=== PATIENT | male | born 1970 | race Caucasian/White ===

== ENCOUNTER 2020-11-21 06:24 | Outpatient (REF) | payer OTHER, SELFPAY ==
[2020-11-21 07:27] LABS: Estimated Average Glucose 123 mg/dL; Hemoglobin A1c % 5.9 %
[2020-11-21 07:45] LABS: Alanine Aminotransferase 58 U/L (0-40); Albumin Level 4.6 g/dL (3.5-5.0); Alkaline Phosphatase 89 U/L (39-117); Anion Gap 13 (12-20); Aspartate Amino Transferase 25 U/L (5-37); Bilirubin Total 0.8 mg/dL (0.0-1.0); Blood Urea Nitrogen 13 mg/dL (9-16); Calcium 9.2 mg/dL (8.4-10.2); Carbon Dioxide 27 mmol/L (22-29); Chloride 104 mmol/L (96-108); Cholesterol 162 mg/dL; Estimated Glomerular Filt Rate > 60; Glucose Random 131 mg/dL (60-115); HDL Cholesterol 33 mg/dL; LDL Cholesterol Calculated 80 mg/dl; Potassium 4.7 mmol/L (3.3-5.1); Sodium 139 mmol/L (135-145); Total Protein 7.2 g/dL (6.5-8.0); Triglycerides 246 mg/dL
[2020-11-21 07:56] LABS: Thyroid Stimulating Hormone 1.58 uIU/mL (0.32-4.0)
== END 2020-11-21 06:25 | disposition home or self-care (01) ==
LOC: HO.LAB 06:24
PROVIDERS: PCP Internal Medicine; Visit Provider Internal Medicine
DX: E78.2 Mixed hyperlipidemia (principal); I10 Essential (primary) hypertension; M25.512 Pain in left shoulder; R73.01 Impaired fasting glucose; R74.01 Elevation of levels of liver transaminase levels
CPT/HCPCS: 36415; 80053; 80061; 83036; 84443

== ENCOUNTER 2021-04-12 07:27 | Outpatient (REF) | payer OTHER, SELFPAY ==
[2021-04-12 07:54] LABS: MANUAL DIFF FLAG NO
[2021-04-12 07:57] LABS: Basophils Absolute Auto 0.1 X10*3/uL (0.0-0.2); Basophils Percent Auto 0.9 % (0-2); Eosinophils Absolute Auto 0.3 X10*3/uL (0.0-0.4); Hematocrit 40.8 % (42-52); Hemoglobin 14.2 g/dl (14.0-18.0); Imm Gran Abs Auto 0.03 X10*3/uL (0.00-0.03); Imm Gran Pct Auto 0.3 % (0.0-0.4); Lymphocytes Absolute Auto 3.5 X10*3/uL (1.2-4.9); Lymphocytes Percent Auto 36.7 % (20-40); Mean Corpuscular HGB Conc 34.8 g/dl (31.0-36.0); Mean Corpuscular Hemoglobin 31.9 pg (27.0-33.0); Mean Corpuscular Volume 91.7 fL (80-98); Mean Platelet Volume 8.8 fL (9.4-12.4); Monocytes Absolute Auto 0.8 X10*3/uL (0.1-1.2); Monocytes Percent Auto 8.5 % (2-11); Neutrophils Absolute Auto 4.9 X10*3/uL (2.0-8.3); Neutrophils Percent Auto 50.6 % (45-73); Platelet Count 327 X10*3/uL (160-400); Red Blood Count 4.45 X10*6/uL (4.60-5.80); Red Cell Distribution Width 12.5 % (11.0-16.0); White Blood Count 9.6 X10*3/uL (4.8-10.8)
[2021-04-12 08:15] LABS: Alanine Aminotransferase 49 U/L (0-40); Albumin Level 4.7 g/dL (3.5-5.0); Alkaline Phosphatase 76 U/L (39-117); Anion Gap 13 (12-20); Aspartate Amino Transferase 16 U/L (5-37); Bilirubin Total 0.7 mg/dL (0.0-1.0); Blood Urea Nitrogen 16 mg/dL (9-16); Carbon Dioxide 26 mmol/L (22-29); Chloride 106 mmol/L (96-108); Cholesterol 165 mg/dL; Estimated Glomerular Filt Rate > 60; Glucose Random 113 mg/dL (60-115); HDL Cholesterol 39 mg/dL; LDL Cholesterol Calculated 98 mg/dl; Potassium 4.9 mmol/L (3.3-5.1); Sodium 140 mmol/L (135-145); Triglycerides 140 mg/dL
[2021-04-12 08:29] LABS: Estimated Average Glucose 117 mg/dL; Hemoglobin A1c % 5.7 %
== END 2021-04-12 07:28 | disposition home or self-care (01) ==
LOC: HO.LAB 07:27
PROVIDERS: PCP Internal Medicine; Visit Provider Internal Medicine
DX: E78.2 Mixed hyperlipidemia (principal); I10 Essential (primary) hypertension; R73.01 Impaired fasting glucose
CPT/HCPCS: 36415; 80053; 80061; 83036; 85025

== ENCOUNTER 2021-09-21 06:30 | Day surgery (SDC) | payer OTHER, SELFPAY ==
[2021-09-14 11:39] VITALS: BMI 32.5
--- NOTE | 2021-09-20 10:38 | P.CONAN_ITS ---
Documented by User: Amy Miller NP 09/20/21 10:39 HPI - Anesthesia Eval Consult details Narrative: 50yo M for Colonoscopy [facility] Past Medical History Medical History (Updated 09/21/21 @ 06:49 by Alyssa Pisano RN) Borderline diabetes COVID-19 vaccine administered HTN (hypertension) Hyperlipidemia On beta kelsie at home Snores Surgical History Surgical History (Updated 09/21/21 @ 06:41 by Alyssa Pisano RN) History of arthroscopy of right knee History of shoulder surgery Hx of vasectomy Social History Social History Patient Tobacco Use Status: Former Tobacco user Quit Date: 20 yrs ago Use of substances other than those prescribed or required for medical reasons: No Are you DNR?: No Advance Directives: No Advance Directives Information Provided: Yes Meds Allergies Allergy/AdvReac Type Severity Reaction Status Date / Time codeine [Codeine] Allergy Mild SEVERE Verified 09/21/21 06:38 STOMACH PAIN atorvastatin Allergy Unknown Unknown Verified 09/21/21 06:38 lisinopril [LISINOPRIL] Allergy Unknown ANGIOEDEMA Verified 09/21/21 06:38 Home Medications Medication Instructions Recorded Confirmed Last Taken Type amlodipine 10 mg tablet 10 mg PO DAILY 09/14/21 09/14/21 Unknown History coenzyme Q10 100 mg capsule (Co 100 mg PO DAILY 09/14/21 09/14/21 Unknown History Q-10) metoprolol succinate 50 mg 50 mg PO DAILY 09/14/21 09/14/21 Unknown History tablet,extended release 24 hr rosuvastatin 10 mg tablet 10 mg PO DAILY 09/14/21 09/14/21 Unknown History Exam Exam Date and Time: September 20, 2021 1038 Height,Weight and Vital Signs: Height 6 ft Weight 108.862 kg Pertinent Lab Results Pertinent Lab Results: Laboratory Tests 04/12/21 04/12/21 07:35 07:35 WBC 9.6 Hgb 14.2 Hct 40.8 L Plt Count 327 Sodium 140 Potassium 4.9 Chloride 106 Carbon Dioxide 26 BUN 16 Creatinine 1.14 Assessment and Plan Assessment Anesthesia Assessment: Chart Reviewed Documented by User: Melva Rosenthal MD 09/21/21 09:06 [facility] Active Problems Active Problems: Snores. No sleep study Past Medical History Medical History (Updated 09/21/21 @ 06:49 by Alyssa Pisano, CHANCE) Borderline diabetes COVID-19 vaccine administered HTN (hypertension) Hyperlipidemia On beta kelsie at home Snores Family History Family history of problems with anesthesia: No Surgical History Surgical History (Updated 09/21/21 @ 06:41 by Alyssa Pisano, CHANCE) History of arthroscopy of right knee History of shoulder surgery Hx of vasectomy History of Problems with Anesthesia: No Social History Social History Patient Tobacco Use Status: Former Tobacco user Quit Date: 20 yrs ago Use of substances other than those prescribed or required for medical reasons: No Are you DNR?: No Advance Directives: No Advance Directives Information Provided: Yes Meds Allergies Allergy/AdvReac Type Severity Reaction Status Date / Time codeine [Codeine] Allergy Mild SEVERE Verified 09/21/21 06:38 STOMACH PAIN atorvastatin Allergy Unknown Unknown Verified 09/21/21 06:38 lisinopril [LISINOPRIL] Allergy Unknown ANGIOEDEMA Verified 09/21/21 06:38 Home Medications Medication Instructions Recorded Confirmed Last Taken Type amlodipine 10 mg tablet 10 mg PO DAILY 09/14/21 09/14/21 Unknown History coenzyme Q10 100 mg capsule (Co 100 mg PO DAILY 09/14/21 09/14/21 Unknown History Q-10) metoprolol succinate 50 mg 50 mg PO DAILY 09/14/21 09/14/21 Unknown History tablet,extended release 24 hr rosuvastatin 10 mg tablet 10 mg PO DAILY 09/14/21 09/14/21 Unknown History Exam Height,Weight and Vital Signs: Height 6 ft Weight 108.862 kg Vital Signs Temp Pulse Resp BP Pulse Ox 09/21/21 06:46 97.3 F 69 16 135/83 96 Airway Mallampati Class: II TM Dist: >3cm Neck ROM: Full Loose/Missing/Broken Teeth: Yes (Missing top right) Heart: RRR Lungs: CTAB Assessment and Plan Final Anesthetic Review Family History of Problems with Anesthesia: No History of Problems with Anesthesia: No NPO: Yes ASA Class: II Final Preanesthetic Review: No Changes in Pt Med Stat, Meds/Allgs Chart Revie wed, Consent Obtained/Reviewed and Anes Risks/Benef Reviewed Patient Risk: Intermediate Procedure Risk: Low Assessment/Block/Sedation in SS: Assess/Block/Sedation-SS Anesthetic Plan Anesthetic Plan: MAC: Disposition: Standard PACU
[2021-09-21 06:46] VITALS: BP 135/83; PULSE 69; RESP 16; TEMP 36.3; O2SAT 96
[2021-09-21] MEDS: Lactated Ringers 1,000 ML 100 ML IVCONT (06:54)
--- NOTE | 2021-09-21 08:48 | P.BOP_ITS ---
Brief Operative Note Date of Service: 09/21/21 Pre-op diagnosis: Screening Post-op diagnosis: other (Colon polyps) Procedure: Colonosdcopy to the cecum and TI with bx/removal of polyp, and multiple hot snare polypectomies Surgeon: Edmond Zhong Anesthesia: MAC Was an Lean Six Sigma Black Belt used for this Procedure?: No Estimated blood loss (mL): 2.0 Pathology: other (A. Transverse colon polyps B. Polyps at 40cm C. Polyp at 30cm D. Rectal polyp) Condition: stable Disposition: PACU
[2021-09-21 08:49] VITALS: BP 108/65; PULSE 79; RESP 14; TEMP 36.3; O2SAT 98
[2021-09-21 09:04] VITALS: BP 120/67; PULSE 75; RESP 16; TEMP 36.3; O2SAT 99
--- NOTE | 2021-09-21 09:22 | OP_ITS ---
SURGEON: Edmond Zhong MD INDICATIONS: The patient presents for evaluation of colorectal cancer screening. Full consent has been obtained from him for this, including risks of bleeding and perforation. PREOPERATIVE DIAGNOSIS: Colorectal cancer screening. POSTOPERATIVE DIAGNOSIS: PROCEDURE PERFORMED: Colonoscopy to the cecum and terminal ileum with multiple hot snare polypectomies, and biopsy and removal of polyp. ESTIMATED BLOOD LOSS: COMPLICATIONS: ANESTHESIA: Monitored anesthesia care. ASSISTANTS: SPECIMENS: POSTOPERATIVE DIAGNOSES: Colorectal cancer screening, multiple colon polyps, diverticulosis, and internal hemorrhoids. DESCRIPTION OF PROCEDURE: The patient was placed in the left lateral decubitus position. The digital rectal exam revealed no abnormalities. The Olympus video pediatric colonoscope was entered into the rectum and advanced easily to the cecum. Once in the cecum, I did identify normal-appearing cecal pouch with appendiceal orifice and a normal-appearing ileocecal valve. The terminal ileum was cannulated and appeared normal. The scope was withdrawn back from the colon. The entire cecum and ileocecal valve appeared normal. The scope was slowly withdrawn assessing all mucosal surfaces carefully. Preparation was excellent. In the transverse colon was an approximately 3 or 4 mm grossly adenomatous polyp, which was biopsied and completely removed with the cold biopsy forceps. Also, in the transverse colon and at 40 cm were multiple grossly adenomatous polyps ranging in size from 5 mm to 1.5 cm. These were all removed by hot snare polypectomy and either recovered by suction or the retrieval net. All the polypectomy sites appeared clean, without any sign of residual polyp nor bleeding. At 30 cm was an approximately 1.5 cm polyp on a short stalk which was removed by hot snare polypectomy and recovered with the retrieval net. The polypectomy site appeared clean, without any sign of residual polyp nor bleeding. Of note, when the retrieval net was used, the polyps were withdrawn from the patient and then the scope was readvanced back to all of the polypectomy sites. There was a mild amount of sigmoid diverticulosis. There was no evidence of any colitis nor angiodysplasias. In the distal rectum, seen best in the forward viewing position, was an approximately 1 cm polyp, which was removed by hot snare polypectomy and recovered by withdrawing it on the tip of the scope. The scope was readvanced back into the rectum and the polypectomy site appeared clean, without any sign of residual polyp nor bleeding. The scope was retroflexed visualizing some small internal hemorrhoids, but no other pathology. The scope was straightened and withdrawn from the patient. He tolerated the procedure well and was returned to the recovery area in stable condition. IMPRESSION: 1. Multiple colon polyps, status post hot snare polypectomy, and biopsy and removal. 2. Diverticulosis. 3. Internal hemorrhoids. PLAN: The results of the pathology will be checked. Given the polyps' gross appearances, some of their sizes of > 1cm,, and their multiple number, I would recommend a repeat colonoscopy in 3 years for further screening and surveillance. He was advised not to use any aspirin or NSAIDs for 1 week. MD MARGIE Rodriguez/CHON / [id number] MTDSatinder
== END 2021-09-21 09:35 | disposition home or self-care (01) ==
PROVIDERS: PCP Internal Medicine; Visit Provider Internal Medicine
PROC: 0DJD8ZZ Inspection of Lower Intestinal Tract, Via Natural or Artificial Opening Endoscopic (ICD-10-PCS; CPT 45378; principal; 2021-09-21 07:30)
DX: Z12.11 Encounter for screening for malignant neoplasm of colon (principal); D12.3 Benign neoplasm of transverse colon; D12.5 Benign neoplasm of sigmoid colon; D12.8 Benign neoplasm of rectum; K57.30 Diverticulosis of large intestine without perforation or abscess without bleeding; K64.8 Other hemorrhoids; I10 Essential (primary) hypertension; E78.5 Hyperlipidemia, unspecified; R73.03 Prediabetes; R06.83 Snoring; Z79.899 Other long term (current) drug therapy; Z88.8 Allergy status to other drugs, medicaments and biological substances; Z87.891 Personal history of nicotine dependence
CPT/HCPCS: 45385; 45380; 88305; J2250

== ENCOUNTER 2022-04-26 06:04 | Outpatient (REF) | payer OTHER, SELFPAY ==
[2022-04-26 06:20] LABS: MANUAL DIFF FLAG NO
[2022-04-26 06:59] LABS: Basophils Absolute Auto 0.1 X10*3/uL (0.0-0.2); Basophils Percent Auto 1.7 % (0-2); Eosinophils Absolute Auto 0.4 X10*3/uL (0.0-0.4); Eosinophils Percent Auto 5.4 % (0-4); Hematocrit 42.9 % (42.0-52.0); Hemoglobin 14.9 g/dl (14.0-18.0); Imm Gran Abs Auto 0.02 X10*3/uL (0.00-0.03); Imm Gran Pct Auto 0.3 % (0.0-0.4); Lymphocytes Absolute Auto 2.3 X10*3/uL (1.2-4.9); Lymphocytes Percent Auto 29.3 % (20-40); Mean Corpuscular HGB Conc 34.7 g/dl (31.0-36.0); Mean Corpuscular Hemoglobin 32.2 pg (27.0-33.0); Mean Corpuscular Volume 92.7 fL (80.0-98.0); Mean Platelet Volume 8.9 fL (9.4-12.4); Monocytes Absolute Auto 0.9 X10*3/uL (0.1-1.2); Monocytes Percent Auto 11.5 % (2-11); Neutrophils Absolute Auto 4.1 x10*3/uL (2.0-8.3); Neutrophils Percent Auto 51.8 % (45-73); Platelet Count 286 X10*3/uL (160-400); Red Blood Count 4.63 X10*6/uL (4.60-5.80); Red Cell Distribution Width 11.9 % (11.0-16.0); White Blood Count 7.8 X10*3/uL (4.8-10.8)
[2022-04-26 07:42] LABS: Alanine Aminotransferase 51 U/L (0-40); Albumin Level 4.6 g/dL (3.5-5.0); Alkaline Phosphatase 75 U/L (39-117); Anion Gap 15 (12-20); Aspartate Amino Transferase 26 U/L (5-37); Bilirubin Total 0.6 mg/dL (0.0-1.0); Blood Urea Nitrogen 12 mg/dL (9-16); Calcium 9.6 mg/dL (8.4-10.2); Carbon Dioxide 27 mmol/L (22-29); Chloride 103 mmol/L (96-108); Cholesterol 158 mg/dL; Estimated Glomerular Filt Rate > 60; Glucose Random 121 mg/dL (60-115); HDL Cholesterol 31 mg/dL; LDL Cholesterol Calculated 91 mg/dl; Potassium 4.8 mmol/L (3.3-5.1); Sodium 140 mmol/L (135-145); Triglycerides 182 mg/dL
[2022-04-26 07:48] LABS: Thyroid Stimulating Hormone 2.13 uIU/mL (0.32-4.0)
== END 2022-04-26 06:05 | disposition home or self-care (01) ==
LOC: HO.LAB 06:04
PROVIDERS: PCP Internal Medicine; Visit Provider Internal Medicine
DX: G47.33 Obstructive sleep apnea (adult) (pediatric) (principal); I10 Essential (primary) hypertension; R74.01 Elevation of levels of liver transaminase levels
CPT/HCPCS: 36415; 80053; 80061; 84443; 85025

== ENCOUNTER 2022-10-25 08:44 | Outpatient (REF) | payer OTHER, SELFPAY ==
[2022-10-25 09:54] LABS: Estimated Average Glucose 123 mg/dL; Hemoglobin A1c % 5.9 %
[2022-10-25 10:24] LABS: Alanine Aminotransferase 43 U/L (0-40); Albumin Level 4.6 g/dL (3.5-5.0); Alkaline Phosphatase 75 U/L (39-117); Anion Gap 14 (12-20); Aspartate Amino Transferase 19 U/L (5-37); Bilirubin Total 0.9 mg/dL (0.0-1.0); Blood Urea Nitrogen 15 mg/dL (9-16); Calcium 9.3 mg/dL (8.4-10.2); Carbon Dioxide 26 mmol/L (22-29); Chloride 104 mmol/L (96-108); Estimated Glomerular Filt Rate > 60; Glucose Random 124 mg/dL (60-115); Potassium 5.2 mmol/L (3.3-5.1); Sodium 139 mmol/L (135-145)
[2022-10-25 10:41] LABS: Prostate Specific Antigen Scr 1.01 ng/mL (<0.05-4.0)
== END 2022-10-25 08:45 | disposition home or self-care (01) ==
LOC: HO.LAB 08:44
PROVIDERS: PCP Internal Medicine; Visit Provider Internal Medicine
DX: Z00.00 Encounter for general adult medical examination without abnormal findings (principal); Z12.5 Encounter for screening for malignant neoplasm of prostate; E78.00 Pure hypercholesterolemia, unspecified; I10 Essential (primary) hypertension; R73.01 Impaired fasting glucose; R74.01 Elevation of levels of liver transaminase levels; Z86.010 Personal history of colon polyps
CPT/HCPCS: 36415; 80053; 83036; 84153

== ENCOUNTER 2023-05-06 08:41 | Outpatient (REF) | payer OTHER, SELFPAY ==
[2023-05-06 09:04] LABS: MANUAL DIFF FLAG NO
[2023-05-06 09:53] LABS: Basophils Absolute Auto 0.1 X10*3/uL (0.0-0.2); Basophils Percent Auto 1.1 % (0-2); Eosinophils Absolute Auto 0.3 X10*3/uL (0.0-0.4); Eosinophils Percent Auto 3.3 % (0-4); Hematocrit 41.8 % (42.0-52.0); Hemoglobin 14.6 g/dl (14.0-18.0); Imm Gran Abs Auto 0.03 X10*3/uL (0.00-0.03); Imm Gran Pct Auto 0.3 % (0.0-0.4); Lymphocytes Absolute Auto 2.5 X10*3/uL (1.2-4.9); Lymphocytes Percent Auto 28.1 % (20-40); Mean Corpuscular HGB Conc 34.9 g/dl (31.0-36.0); Mean Corpuscular Hemoglobin 32.3 pg (27.0-33.0); Mean Corpuscular Volume 92.5 fL (80.0-98.0); Mean Platelet Volume 8.9 fL (9.4-12.4); Monocytes Absolute Auto 0.7 X10*3/uL (0.1-1.2); Monocytes Percent Auto 7.8 % (2-11); Neutrophils Absolute Auto 5.2 x10*3/uL (2.0-8.3); Neutrophils Percent Auto 59.4 % (45-73); Platelet Count 323 X10*3/uL (160-400); Red Blood Count 4.52 X10*6/uL (4.60-5.80); Red Cell Distribution Width 11.9 % (11.0-16.0); White Blood Count 8.8 X10*3/uL (4.8-10.8)
[2023-05-06 09:55] LABS: Estimated Average Glucose 120 mg/dL; Hemoglobin A1c % 5.8 % (<6.0)
[2023-05-06 10:14] LABS: Alanine Aminotransferase 77 U/L (0-40); Albumin Level 4.9 g/dL (3.5-5.0); Alkaline Phosphatase 83 U/L (39-117); Anion Gap 17 (12-20); Aspartate Amino Transferase 30 U/L (5-37); Bilirubin Total 0.6 mg/dL (0.0-1.0); Blood Urea Nitrogen 17 mg/dL (9-16); Calcium 9.8 mg/dL (8.4-10.2); Carbon Dioxide 23 mmol/L (22-29); Chloride 103 mmol/L (96-108); Cholesterol 202 mg/dL (<200); Estimated Glomerular Filt Rate > 60; Glucose Random 118 mg/dL (60-115); HDL Cholesterol 35 mg/dL (>40); Potassium 4.4 mmol/L (3.3-5.1); Sodium 139 mmol/L (135-145); Total Protein 7.7 g/dL (6.5-8.0); Triglycerides 477 mg/dL (<150)
[2023-05-06 10:32] LABS: Thyroid Stimulating Hormone 2.11 uIU/mL (0.32-4.0)
== END 2023-05-06 08:42 | disposition home or self-care (01) ==
LOC: HO.LAB 08:41
PROVIDERS: PCP Internal Medicine; Visit Provider Internal Medicine
DX: E78.00 Pure hypercholesterolemia, unspecified (principal); G47.33 Obstructive sleep apnea (adult) (pediatric); I10 Essential (primary) hypertension; R73.01 Impaired fasting glucose; R74.01 Elevation of levels of liver transaminase levels
CPT/HCPCS: 36415; 80053; 80061; 83036; 84443; 85025

== ENCOUNTER 2023-07-28 06:49 | Outpatient (REF) | payer OTHER, SELFPAY ==
[2023-07-28 07:39] LABS: Cholesterol 185 mg/dL (<200); HDL Cholesterol 40 mg/dL (>40); LDL Cholesterol Calculated 112 mg/dL (<100); Triglycerides 169 mg/dL (<150)
[2023-07-28 08:03] LABS: Prostate Specific Antigen Scr 0.47 ng/mL (<0.05-4.0)
== END 2023-07-28 06:50 | disposition home or self-care (01) ==
LOC: HO.LAB 06:49
PROVIDERS: PCP Internal Medicine; Visit Provider Internal Medicine
DX: Z00.01 Encounter for general adult medical examination with abnormal findings (principal); Z12.5 Encounter for screening for malignant neoplasm of prostate; E78.1 Pure hyperglyceridemia; I10 Essential (primary) hypertension
CPT/HCPCS: 36415; 80061; 84153

== ENCOUNTER 2023-11-24 08:15 | Outpatient (REF) | payer OTHER, SELFPAY ==
[2023-11-24 09:29] LABS: Estimated Average Glucose 128 mg/dL; Hemoglobin A1C 151.1434 umol/L; Hemoglobin A1c % 6.1 % (<6.0)
[2023-11-24 09:59] LABS: Alanine Aminotransferase 33 U/L (0-40); Albumin Level 4.5 g/dL (3.5-5.0); Alkaline Phosphatase 44 U/L (39-117); Anion Gap 12 (12-20); Aspartate Amino Transferase 17 U/L (5-37); Bilirubin Total 0.5 mg/dL (0.0-1.0); Blood Urea Nitrogen 17 mg/dL (9-16); Calcium 9.7 mg/dL (8.4-10.2); Carbon Dioxide 27 mmol/L (22-29); Chloride 107 mmol/L (96-108); Cholesterol 179 mg/dL (<200); Estimated Glomerular Filt Rate 58; Glucose Random 116 mg/dL (60-115); HDL Cholesterol 39 mg/dL (>40); LDL Cholesterol Calculated 104 mg/dL (<100); Potassium 4.4 mmol/L (3.3-5.1); Sodium 142 mmol/L (135-145); Total Protein 7.1 g/dL (6.5-8.0); Triglycerides 180 mg/dL (<150)
== END 2023-11-24 08:16 | disposition home or self-care (01) ==
LOC: HO.LAB 08:15
PROVIDERS: PCP Internal Medicine; Visit Provider Internal Medicine
DX: C44.91 Basal cell carcinoma of skin, unspecified (principal); E78.2 Mixed hyperlipidemia; G47.33 Obstructive sleep apnea (adult) (pediatric); I10 Essential (primary) hypertension; N52.9 Male erectile dysfunction, unspecified; R73.01 Impaired fasting glucose
CPT/HCPCS: 36415; 80053; 80061; 83036

== ENCOUNTER 2023-12-02 14:07 | Outpatient (AMB) | payer OTHER, SELFPAY ==
--- NOTE | 2023-12-02 14:12 | HO.NEPHOV ---
Vital Signs 12/02/23 14:13 Height 6 ft Weight 257 lb BMI 34.9 BP 124/76 Blood Pressure Location Rt brachial Position Sitting Pulse 82 Pulse Source Pulse Oximeter Pulse Oximetry (%) 96 Oxygen Delivery Method Room Air Intake Visit Reasons: Hypertensive Kidney disease/ Confirmed Wage And Salary Specialist Required: No Accompanied by: Spouse Allergies codeine [Codeine] Allergy (Mild, Verified 12/02/23 14:15) SEVERE STOMACH PAIN atorvastatin Allergy (Unknown, Verified 12/02/23 14:15) Unknown lisinopril [LISINOPRIL] Allergy (Unknown, Verified 12/02/23 14:15) ANGIOEDEMA HPI Comments Details: Len is a pleasant 53-year-old man with a history of hypertension for more than 10 years. He has been referred for evaluation of hypertension and elevated serum creatinine. For the past 10 years he has been on various antihypertensive medications. Blood pressure has been difficult to control. He is currently on amlodipine 10 mg and metoprolol. Prazosin 2 mg was added about a week ago. He has a history of obstructive sleep apnea. He uses CPAP regularly. He also consumes couple of beers daily. No history of smoking at present. He used to smoke from age [age] and up to a pack a day. The recent serum creatinine was 1.29 mg/dL with a EGFR of 56 mL/minute. Over the last few years serum creatinine has been fluctuating between 1.16 and 1.29. Today he has no specific complaints. No headache no palpitation no sweating. No nausea vomiting. No shortness of breath. No polyuria no polydipsia No edema. No urinary symptoms. [facility] Medical History (Updated 12/02/23 @ 14:52 by Ronnie Ruelas MD) Borderline diabetes COVID-19 vaccine administered On beta kelsie at home Snores Hyperlipidemia HTN (hypertension) Surgical History Hx of vasectomy History of shoulder surgery History of arthroscopy of right knee Social History Patient Tobacco Use Status: Former Tobacco user Quit Date: 20 yrs ago Physical Exam Vital Signs: Last Vital Signs Pulse 82 12/02/23 14:13 BP 124/76 12/02/23 14:13 Pulse Ox 96 12/02/23 14:13 Oxygen Delivery Method Room Air 12/02/23 14:13 BMI result Body Mass Index 34.9 Repeat blood pressure 110/60 on the left upper extremity. 120/70 in the right upper extremity and no orthostatic changes. Const General: comfortable Nutritional Appearance: well nourished Orientation/consciousness: patient oriented x3 HEENT Head: No normal to inspection Mouth: moist mucous membranes Neck Neck: Yes supple and Yes no JVD Resp Auscultation: clear to auscultation bilaterally, no rales and rub present Cardio Jugular venous distension: no JVD Palpation: no palpable S3 and no palpable S4 Heart sounds: no rubs GI Palpation (GI): Soft to palpation and nontender Percussion: No Fluid wave present General: Yes no CVA tenderness Back/Spine/Pelvis Back: no CVA tenderness Skin General skin exam: no rashes or lesions noted Neuro General: patient oriented x3 Extrem General: Yes no pedal edema and No clubbing Results Reviewed Nephrology Results: Hgb 14.6 g/dl (14.0-18.0) 05/06/23 WBC 8.8 X10*3/uL (4.8-10.8) 05/06/23 Plt Count 323 X10*3/uL (160-400) 05/06/23 Sodium 142 mmol/L (135-145) 11/24/23 Potassium 4.4 mmol/L (3.3-5.1) 11/24/23 Chloride 107 mmol/L (96-108) 11/24/23 Carbon Dioxide 27 mmol/L (22-29) 11/24/23 BUN 17 mg/dL (9-16) H 11/24/23 Creatinine 1.29 mg/dL (0.5-1.4) 11/24/23 Calcium 9.7 mg/dL (8.4-10.2) 11/24/23 Assessment & Plan Assessment & Plan (1) Elevated serum creatinine: Code(s): R79.89 - Other specified abnormal findings of blood chemistry Category: Medical (2) HTN (hypertension): Code(s): I10 - Essential (primary) hypertension Category: Medical Plan 53-year-old man with hypertension in the setting of obstructive sleep apnea and elevated BMI. Serum creatinine is mildly elevated with a corresponding EGFR of 56 mL/minute. He probably has underlying hypertensive nephrosclerosis given the long history of hypertension. However the EGFR of 56 seems rather an over estimation since he is quite muscular. I will obtain a 24 hour urine collection to calculate a creatinine clearance which could be more accurate in assessing his renal function. Goal is to slow the progression of renal disease Maintain blood pressure less than 130/80 Continue to avoid nephrotoxic agents including NSAIDs. Encouraged him to stay on low-sodium diet Increase fluid intake. We discussed weight loss and increasing physical activity which should help to optimize his blood pressure. Today I have not made any changes to his medications since his blood pressure is rather well controlled. Once the baseline workup is completed returned to office next few weeks I will keep you updated. Orders: Orders Total Protein Urine Random 1 Week I10 - Essential (primary) hypertension, R79.89 - Other specified abnormal findings of blood chemistry UA and rflx microscopic 1 Week I10 - Essential (primary) hypertension, R79.89 - Other specified abnormal findings of blood chemistry Creatinine Urine 1 Week I10 - Essential (primary) hypertension, R79.89 - Other specified abnormal findings of blood chemistry Creatinine Clearance Urine 24U 1 Week I10 - Essential (primary) hypertension, R79.89 - Other specified abnormal findings of blood chemistry Creatinine, 24 Hr Group 1 Week I10 - Essential (primary) hypertension, R79.89 - Other specified abnormal findings of blood chemistry Coding Level of Care Code New Pt Level 4 (79288) Diagnoses Elevated serum creatinine R79.89 HTN (hypertension) I10
[2023-12-02 14:13] VITALS: BP 124/76; PULSE 82; O2SAT 96; BMI 34.9
== END 2023-12-02 14:54 | disposition home or self-care (01) ==
PROVIDERS: PCP Internal Medicine; Visit Provider Internal Medicine Hypertension Specialist
DX: R79.89 Other specified abnormal findings of blood chemistry (principal); I10 Essential (primary) hypertension
CPT/HCPCS: 99204

== ENCOUNTER → 2023-12-02 14:07 | Outpatient (BNVA) | payer OTHER, SELFPAY | PROVIDERS: PCP Internal Medicine; Visit Provider Internal Medicine Hypertension Specialist ==

== ENCOUNTER 2023-12-20 09:38 | Outpatient (REF) | payer OTHER, SELFPAY ==
[2023-12-20 10:24] LABS: Appearance Urine Clear; Color Urine Yellow; Glucose Urine UA Negative (Negative); Leukocyte Esterase Urine Negative (Negative); Nitrite Urine Negative (Negative); PH 5.5 (5.0-9.0); Urine Blood Negative (Negative); Urine Ketones Negative (Negative); Urine Protein Negative (Neg-Trace)
[2023-12-20 10:38] LABS: Estimated Glomerular Filt Rate 49
[2023-12-20 10:38] LABS: Creatinine, mg/dL 102.93
[2023-12-20 10:51] LABS: Creatinine Urine 168.16 mg/dL; Total Protein Urine Random < 7 mg/dL (<12)
[2023-12-20 10:59] LABS: Creatinine, 24Hr Urine 2.1 G/Day (1.0-2.0); Total Volume 24 Hour Urine 2075 mL
[2023-12-21 07:17] LABS: Creatinine (CrCl) 1.51 mg/dL (0.5-1.4); Creatinine Clearance 98.2 mL/min (85-125)
== END 2023-12-20 09:39 | disposition home or self-care (01) ==
LOC: HO.LAB 09:38
PROVIDERS: Visit Provider Internal Medicine Hypertension Specialist
DX: I10 Essential (primary) hypertension (principal); R79.89 Other specified abnormal findings of blood chemistry
CPT/HCPCS: 36415; 81003; 82565; 82570; 82575; 84156

== ENCOUNTER 2023-12-23 14:00 | Outpatient (AMB) | payer OTHER, SELFPAY ==
[2023-12-23 14:01] VITALS: BP 122/72; PULSE 74; O2SAT 96; BMI 35.3
--- NOTE | 2023-12-23 14:01 | HO.NEPHOV_ITS ---
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 He has been referred for evaluation of hypertension and elevated serum creatinine. For the past 10 years he has been on various antihypertensive medications. Blood pressure has been difficult to control. He is currently on amlodipine 10 mg and metoprolol. Prazosin 2 mg was added about a week ago. He has a history of obstructive sleep apnea. He uses CPAP regularly. He also consumes couple of beers daily. No history of smoking at present. He used to smoke from age [age] and up to a pack a day. The recent serum creatinine was 1.29 mg/dL with a EGFR of 56 mL/minute. Over the last few years serum creatinine has been fluctuating between 1.16 and 1.29. Today he has no specific complaints. No headache no palpitation no sweating. No nausea vomiting. No shortness of breath. No polyuria no polydipsia No edema. No urinary symptoms. [facility] Medical History (Updated 12/02/23 @ 14:52 by Ronnie Ruelas MD) Borderline diabetes COVID-19 vaccine administered On beta kelsie at home Snores Hyperlipidemia HTN (hypertension) Surgical History Hx of vasectomy History of shoulder surgery History of arthroscopy of right knee Social History Patient Tobacco Use Status: Former Tobacco user Quit Date: 20 yrs ago Physical Exam Vital Signs: Last Vital Signs Pulse 74 12/23/23 14:01 Pulse Ox 96 12/23/23 14:01 Oxygen Delivery Method Room Air 12/23/23 14:01 BMI result Body Mass Index 35.3 Results Reviewed Nephrology Results: Hgb 14.6 g/dl (14.0-18.0) 05/06/23 WBC 8.8 X10*3/uL (4.8-10.8) 05/06/23 Plt Count 323 X10*3/uL (160-400) 05/06/23 Sodium 142 mmol/L (135-145) 11/24/23 Potassium 4.4 mmol/L (3.3-5.1) 11/24/23 Chloride 107 mmol/L (96-108) 11/24/23 Carbon Dioxide 27 mmol/L (22-29) 11/24/23 BUN 17 mg/dL (9-16) H 11/24/23 Creatinine 1.51 mg/dL (0.5-1.4) H 12/20/23 Calcium 9.7 mg/dL (8.4-10.2) 11/24/23 Urine Protein Negative mg/dL (Neg-Trace) 12/20/23 Urine Creatinine 168.16 mg/dL 12/20/23 Assessment & Plan Assessment & Plan (1) HTN (hypertension): Code(s): I10 - Essential (primary) hypertension Category: Medical (2) Elevated serum creatinine: Code(s): R79.89 - Other specified abnormal findings of blood chemistry Category: Medical Plan 53-year-old man with hypertension in the setting of obstructive sleep apnea and elevated BMI. Serum creatinine is mildly elevated with a corresponding EGFR of 56 mL/minute. He could have mild hypertensive nephrosclerosis given the long history of hypert ension. However the EGFR of 56 seems rather an over estimation since he is quite muscular. 24 hour urine collection revealed a creatinine clearance of 98 mL/minute which is normal for his age In the office today blood pressure is well controlled Maintain blood pressure less than 130/80 Continue to avoid nephrotoxic agents including NSAIDs. Encouraged him to stay on low-sodium diet Increase fluid intake. We discussed weight loss and increasing physical activity which should help to optimize his blood pressure. His baseline creatinine is probably around 1.29 mg/dL. However on December 19 creatinine was 1.51. This is higher than his baseline. I do not see any precipitating factors therefore I will recheck the creatinine levels again. If creatinine is persistently elevated I will arrange for renal ultrasonogram. The urinalysis was benign without any significant proteinuria or hematuria. I do not believe he has any active glomerular or interstitial disease Orders: Orders Basic Metabolic Panel Today I10 - Essential (primary) hypertension Coding Level of Care Code Est Pt Level 4 (09836) Diagnoses HTN (hypertension) I10 Elevated serum creatinine R79.89
== END 2023-12-23 14:16 | disposition home or self-care (01) ==
PROVIDERS: PCP Internal Medicine; Visit Provider Internal Medicine Hypertension Specialist
DX: I10 Essential (primary) hypertension (principal); R79.89 Other specified abnormal findings of blood chemistry
CPT/HCPCS: 99214

== ENCOUNTER → 2023-12-23 14:00 | Outpatient (BNVA) | payer OTHER, SELFPAY | PROVIDERS: PCP Internal Medicine; Visit Provider Internal Medicine Hypertension Specialist ==

== ENCOUNTER 2024-02-24 06:24 | Outpatient (REF) | payer OTHER, SELFPAY ==
[2024-02-24 07:42] LABS: Estimated Average Glucose 123 mg/dL; Hemoglobin A1c % 5.9 % (<6.0)
[2024-02-24 07:52] LABS: Alanine Aminotransferase 46 U/L (0-40); Albumin Level 4.6 g/dL (3.5-5.0); Alkaline Phosphatase 48 U/L (39-117); Anion Gap 15 (12-20); Aspartate Amino Transferase 28 U/L (5-37); Bilirubin Total 0.4 mg/dL (0.0-1.0); Blood Urea Nitrogen 16 mg/dL (9-16); Calcium 10.2 mg/dL (8.4-10.2); Carbon Dioxide 24 mmol/L (22-29); Chloride 106 mmol/L (96-108); Cholesterol 150 mg/dL (<200); Estimated Glomerular Filt Rate 51; Glucose Random 121 mg/dL (60-115); HDL Cholesterol 31 mg/dL (>40); LDL Cholesterol Calculated 77 mg/dL (<100); Potassium 4.1 mmol/L (3.3-5.1); Sodium 141 mmol/L (135-145); Total Protein 7.1 g/dL (6.5-8.0); Triglycerides 210 mg/dL (<150)
== END 2024-02-24 06:25 | disposition home or self-care (01) ==
LOC: HO.LAB 06:24
PROVIDERS: PCP Internal Medicine; Visit Provider Internal Medicine
DX: E78.2 Mixed hyperlipidemia (principal); G47.33 Obstructive sleep apnea (adult) (pediatric); I12.9 Hypertensive chronic kidney disease with stage 1 through stage 4 chronic kidney disease, or unspecified chronic kidney disease; R73.01 Impaired fasting glucose; N18.9 Chronic kidney disease, unspecified
CPT/HCPCS: 36415; 80053; 80061; 83036

== ENCOUNTER 2024-06-08 07:42 | Outpatient (REF) | payer OTHER, SELFPAY ==
[2024-06-08 08:01] LABS: MANUAL DIFF FLAG NO
[2024-06-08 08:36] LABS: Basophils Absolute Auto 0.1 X10*3/uL (0.0-0.2); Basophils Percent Auto 1.1 % (0-2); Eosinophils Absolute Auto 0.3 X10*3/uL (0.0-0.4); Eosinophils Percent Auto 3.7 % (0-4); Hematocrit 39.2 % (42.0-52.0); Hemoglobin 13.2 g/dl (14.0-18.0); Imm Gran Abs Auto 0.03 X10*3/uL (0.00-0.03); Imm Gran Pct Auto 0.4 % (0.0-0.4); Lymphocytes Absolute Auto 2.7 X10*3/uL (1.2-4.9); Lymphocytes Percent Auto 32.8 % (20-40); Mean Corpuscular HGB Conc 33.7 g/dl (31.0-36.0); Mean Corpuscular Hemoglobin 31.4 pg (27.0-33.0); Mean Corpuscular Volume 93.1 fL (80.0-98.0); Monocytes Absolute Auto 0.8 X10*3/uL (0.1-1.2); Monocytes Percent Auto 9.3 % (2-11); Neutrophils Absolute Auto 4.3 x10*3/uL (2.0-8.3); Neutrophils Percent Auto 52.7 % (45-73); Platelet Count 321 X10*3/uL (160-400); Red Blood Count 4.21 X10*6/uL (4.60-5.80); Red Cell Distribution Width 12.4 % (11.0-16.0); White Blood Count 8.2 X10*3/uL (4.8-10.8)
[2024-06-08 09:27] LABS: Alanine Aminotransferase 39 U/L (0-40); Albumin Level 4.6 g/dL (3.5-5.0); Alkaline Phosphatase 42 U/L (39-117); Anion Gap 13 (12-20); Aspartate Amino Transferase 26 U/L (5-37); Bilirubin Total 0.5 mg/dL (0.0-1.0); Blood Urea Nitrogen 18 mg/dL (9-16); Calcium 9.6 mg/dL (8.4-10.2); Carbon Dioxide 27 mmol/L (22-29); Chloride 106 mmol/L (96-108); Cholesterol 175 mg/dL (<200); Estimated Glomerular Filt Rate 47; Glucose Random 124 mg/dL (60-115); HDL Cholesterol 36 mg/dL (>40); LDL Cholesterol Calculated 97 mg/dL (<100); Potassium 4.3 mmol/L (3.3-5.1); Sodium 142 mmol/L (135-145); Total Protein 7.1 g/dL (6.5-8.0); Triglycerides 211 mg/dL (<150)
[2024-06-08 09:44] LABS: Prostate Specific Antigen Scr 0.45 ng/mL (<0.05-4.0)
== END 2024-06-08 07:43 | disposition home or self-care (01) ==
LOC: HO.LAB 07:42
PROVIDERS: PCP Internal Medicine; Visit Provider Internal Medicine
DX: E78.2 Mixed hyperlipidemia (principal); G47.33 Obstructive sleep apnea (adult) (pediatric); I12.9 Hypertensive chronic kidney disease with stage 1 through stage 4 chronic kidney disease, or unspecified chronic kidney disease; N40.0 Benign prostatic hyperplasia without lower urinary tract symptoms; R06.02 Shortness of breath; R60.0 Localized edema; Z12.5 Encounter for screening for malignant neoplasm of prostate
CPT/HCPCS: 36415; 80053; 80061; 84153; 85025

== ENCOUNTER 2024-09-07 06:43 | Outpatient (REF) | payer OTHER, SELFPAY ==
[2024-09-07 07:47] LABS: Alanine Aminotransferase 39 U/L (0-40); Albumin Level 4.6 g/dL (3.5-5.0); Alkaline Phosphatase 53 U/L (39-117); Anion Gap 13 (12-20); Aspartate Amino Transferase 24 U/L (5-37); Bilirubin Total 0.4 mg/dL (0.0-1.0); Blood Urea Nitrogen 16 mg/dL (9-16); Calcium 9.5 mg/dL (8.4-10.2); Carbon Dioxide 25 mmol/L (22-29); Chloride 108 mmol/L (96-108); Cholesterol 170 mg/dL (<200); Estimated Glomerular Filt Rate > 60; Glucose Random 118 mg/dL (60-115); HDL Cholesterol 38 mg/dL (>40); LDL Cholesterol Calculated 85 mg/dL (<100); Potassium 4.1 mmol/L (3.3-5.1); Sodium 142 mmol/L (135-145); Total Protein 7.4 g/dL (6.5-8.0); Triglycerides 237 mg/dL (<150)
== END 2024-09-07 06:44 | disposition home or self-care (01) ==
LOC: HO.LAB 06:43
PROVIDERS: PCP Internal Medicine; Visit Provider Internal Medicine
DX: Z00.00 Encounter for general adult medical examination without abnormal findings (principal); E78.2 Mixed hyperlipidemia; I12.9 Hypertensive chronic kidney disease with stage 1 through stage 4 chronic kidney disease, or unspecified chronic kidney disease; Z86.0101 Personal history of adenomatous and serrated colon polyps
CPT/HCPCS: 36415; 80053; 80061

== ENCOUNTER 2025-01-11 08:32 | Outpatient (REF) | payer OTHER, SELFPAY ==
--- OUTSIDE RECORDS SUMMARY | 2025-01-11 08:56 | XMS_ITS | Patient Health Record ---
Author Organization [facility] Address [address] [place] [address] Care Team Providers Care Shank Breaker Name Role Phone Maria Victoria Connolly Primary Care Provider Edmond La Unavailable [phone] Allergies Allergen (clinical drug ingredient) Drug/Non Drug Allergy documented on EMR Reaction Allergy Type Onset Date Status codeine Codeine Unknown Drug Allergy Active Reason For Referral No Information Medications Medication SIG (Take, Route, Frequency, Duration) Notes Start Date End Date Status Metoprolol Succinate ER 50 MG Oral for 90 Active Rosuvastatin Calcium 10 MG Oral for 90 Active amLODIPine Besylate 10 MG Oral for 90 Active CoQ-10 Active Social History Tobacco Use: Social History Observation Description Date Details (start date - stop date) Former Smoker NA - NA Tobacco Use/Smoking Question Answer Notes Patient is a former smoker How long has it been since you last smoked? > 10 years Alcohol Screen Question Answer Notes Did you have a drink contain ing alcohol in the past year? Yes How often did you have a dri nk containing alcohol in the past year? 2 to 4 times a month (2 points) How many drinks did you have on a typical day when you were drinking in the past year? 5 or 6 drinks (2 points) Points 4 Interpretation Positive Section Notes: Nonsmoker; no sig alcohol Problems Problem Type SNOMED Code ICD Code Onset Dates Problem Status W/U Status Risk Notes Problem 896667493 Encounter for screening for malignant neoplasm of colon (Z12.11) Active confirmed Problem 897236348657354 Preprocedural examination (Z01.818) Active confirmed Problem Diverticulosis of colon (290237091) Diverticulosis of colon (K57.30) Active confirmed Plan Of Treatment Future Test Test Name Order Date COLONOSCOPY 08/14/2021 Insurance Providers Payer Name Payer Address Payer Phone Subscriber Number Group Number Insured Name Patient Relationship to Insured Coverage Start Date Coverage End Date [facility] [address] [facility] [place], [place] [phone] [id number] DANIELLE WANG Self - patient is the insured Medical (General) History Medical History History ICD Code Hypertension Denies [place],DM,CVA,Lung disease,renal dise ase Hyperlipidemia ? sleep apnea--he does snore --going to speak with his PCP about a sleep study as of our 08/14/2021 OV Surgical History Surgery Date(Month/Year) left shoulder 2020 right shoulder 2010 right knee 2005
[2025-01-11 09:58] LABS: Estimated Average Glucose 126 mg/dL
[2025-01-11 10:46] LABS: Alanine Aminotransferase 34 U/L (0-40); Albumin Level 4.8 g/dL (3.5-5.0); Alkaline Phosphatase 45 U/L (39-117); Anion Gap 13 (12-20); Aspartate Amino Transferase 21 U/L (5-37); Bilirubin Total 0.5 mg/dL (0.0-1.0); Blood Urea Nitrogen 15 mg/dL (9-16); Carbon Dioxide 28 mmol/L (22-29); Chloride 108 mmol/L (96-108); Cholesterol 184 mg/dL (<200); Estimated Glomerular Filt Rate 52; Glucose Random 119 mg/dL (60-115); HDL Cholesterol 34 mg/dL (>40); LDL Cholesterol Calculated 119 mg/dL (<100); Potassium 4.5 mmol/L (3.3-5.1); Sodium 144 mmol/L (135-145); Total Protein 7.4 g/dL (6.5-8.0); Triglycerides 156 mg/dL (<150)
[2025-01-11 11:06] LABS: Thyroid Stimulating Hormone 2.43 uIU/mL (0.32-4.0)
== END 2025-01-11 08:33 | disposition home or self-care (01) ==
LOC: HO.LAB 08:32
PROVIDERS: PCP Internal Medicine; Visit Provider Internal Medicine
DX: E78.2 Mixed hyperlipidemia (principal); I12.9 Hypertensive chronic kidney disease with stage 1 through stage 4 chronic kidney disease, or unspecified chronic kidney disease; N18.9 Chronic kidney disease, unspecified; R73.01 Impaired fasting glucose
CPT/HCPCS: 36415; 80053; 80061; 83036; 84443

== ENCOUNTER 2025-04-05 08:06 | Outpatient (REF) | payer OTHER, SELFPAY ==
--- OUTSIDE RECORDS SUMMARY | 2025-04-05 08:12 | XMS_ITS | Patient Health Record ---
Author Organization [facility] Address [address] [place] [address] Care Team Providers Care Voltage Inspector Name Role Phone Maria Victoria Connolly Primary Care Provider Edmond La Unavailable [phone] Allergies Allergen (clinical drug ingredient) Drug/Non Drug [...] Problem Status W/U Status Risk Notes Problem 307340767 Encounter for screening for malignant neoplasm of colon (Z12.11) Active confirmed Problem [id number] Preprocedural examination (Z01.818) Active confirmed Problem Diverticulosis of colon (467824251) Diverticulosis of colon (K57.30) Active confirmed Plan Of Treatment Future Test Test Name Order Date COLONOSCOPY 08/14/2021 Insurance Providers Payer Name Payer Address Payer Phone Subscriber Number Group Number Insured Name Patient Relationship to Insured Coverage Start Date Coverage End Date [facility] [address] [facility] [place] [place] [phone] [id number] DANIELLE WANG Self - patient is the insured Medical (General) History Medical History History ICD Code Hypertension Denies [place],DM,CVA,Lung disease,renal dise ase Hyperlipidemia ? sleep apnea--he does snore --going to speak with his PCP about a sleep study as of our 08/14/2021 OV Surgical History Surgery Date(Month/Year) left shoulder 2020 right shoulder 2010 right knee 2005
[2025-04-05 09:18] LABS: Alanine Aminotransferase 35 U/L (0-40); Albumin Level 4.9 g/dL (3.5-5.0); Alkaline Phosphatase 49 U/L (39-117); Anion Gap 13 (12-20); Aspartate Amino Transferase 29 U/L (5-37); Blood Urea Nitrogen 13 mg/dL (9-16); Calcium 9.6 mg/dL (8.4-10.2); Carbon Dioxide 27 mmol/L (22-29); Chloride 107 mmol/L (96-108); Cholesterol 165 mg/dL (<200); Estimated Glomerular Filt Rate 55; HDL Cholesterol 30 mg/dL (>40); Potassium 4.3 mmol/L (3.3-5.1); Sodium 143 mmol/L (135-145); Total Protein 7.1 g/dL (6.5-8.0); Triglycerides 263 mg/dL (<150)
== END 2025-04-05 08:07 | disposition home or self-care (01) ==
LOC: HO.LAB 08:06
PROVIDERS: PCP Internal Medicine; Visit Provider Internal Medicine
DX: I12.9 Hypertensive chronic kidney disease with stage 1 through stage 4 chronic kidney disease, or unspecified chronic kidney disease (principal); N18.9 Chronic kidney disease, unspecified; R06.02 Shortness of breath; R73.01 Impaired fasting glucose; E78.2 Mixed hyperlipidemia; G47.33 Obstructive sleep apnea (adult) (pediatric)
CPT/HCPCS: 36415; 80053; 80061

== ENCOUNTER 2025-05-30 08:34 | Outpatient (AMB) | payer OTHER, SELFPAY ==
--- NOTE | 2025-05-30 08:35 | A.OFFVIS_ITS ---
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 Connolly/HTN, mixed HLD, CKD, SOB Guest Experience Captain Required: No Accompanied by: Spouse Allergies codeine (Codeine) Allergy (Mild, Verified 05/30/25 08:42) SEVERE STOMACH PAIN atorvastatin Allergy (Unknown, Verified 05/30/25 08:42) Unknown lisinopril (LISINOPRIL) Allergy (Unknown, Verified 05/30/25 08:42) ANGIOEDEMA Medication List - Last Reconciled 05/30/25 by Lowell Olivas MD amlodipine 10 mg PO DAILY coenzyme Q10 (Co Q-10) 200 mg PO BID metoprolol succinate ER 100 mg PO DAILY prazosin 2 mg PO BEDTIME psyllium seed (sugar) (Metamucil (sugar) oral powder) 1 tbsp PO BID rosuvastatin 40 mg PO DAILY tadalafil orally ONCE A WEEK; HPI Comments Details: The patient is a 54-year-old male presenting with shortness of breath and peripheral edema. The patient reports experiencing shortness of breath for approximately 15 years, which has progressively worsened over time. Initially, the shortness of breath was manageable, but it has become more pronounced, particularly during physical exertion such as walking uphill or climbing stairs. The patient denies any chest pain. The patient also reports swelling in the legs and feet, which is concerning for peripheral edema. This symptom has been associated with his longstanding history of hypertension, which has been difficult to control despite medication. C urrently managed with amlodipine and metoprolol, and has been on various statins for hyperlipidemia, currently taking rosuvastatin. His LDL levels are controlled, but triglycerides remain elevated. The patient has a history of obstructive sleep apnea and uses a CPAP machine at night. He acknowledges that sleep apnea may contribute to his cardiovascular symptoms. [facility] Medical History (Updated 05/30/25 @ 09:15 by Lowell Olivas MD) KUNAL (obstructive sleep apnea) Borderline diabetes COVID-19 vaccine administered On beta kelsie at home Snores Hyperlipidemia HTN (hypertension) Surgical History Hx of vasectomy History of shoulder surgery History of arthroscopy of right knee Family History (Updated 05/30/25 @ 08:41 by Quincy Kwon CNA) Mother Hypertension Father Hypertension Social History (Updated 05/30/25 @ 08:42 by Quincy Kwon CNA) Alcohol intake: current Alcohol intake frequency: holidays/special occasions only Patient Tobacco Use Status: Current someday Tobacco user Tobacco use type: Cigar Review of Systems Const Denies daytime sleepiness, Denies difficulty sleeping, Denies snoring, Denies stops breathing during sleep and Denies weakness Eyes Denies loss of vision Card Denies chest pain, Denies rapid heart rate, Denies irregular heart rhythm, Denies claudication, Denies leg edema, Denies lightheadedness, Denies palpitations, Reports dyspnea, Reports dyspnea on exertion, Denies orthopnea, Denies paroxysmal nocturnal dyspnea and Denies slow heart rate Resp Denies cough, Reports dyspnea, Reports dyspnea on exertion, Denies snoring and Denies wheezing GI Reports no additional complaints, Denies hematochezia, Denies change in stool character and Denies dyspepsia Denies dysuria and Denies urinary frequency Musc Denies abnormal gait, Denies muscle weakness and Denies numbness Skin/Breast Denies nail changes and Denies rash Neuro Denies abnormal gait, Denies loss of vision, Denies memory loss, Denies numbness and Denies weakness Psych Denies depression, Reports difficulty concentrating, Denies auditory hallucinations and Denies memory loss Endo Denies palpitations Jeremy/Lymph Denies easy bruising Aller/Immun Denies wheezing Physical Exam Vital Signs: Last Vital Signs Pulse 62 05/30/25 08:37 BP 132/80 05/30/25 08:37 BMI result Body Mass Index 35.5 Const General: comfortable and no acute distress Orientation/consciousness: patient oriented x3 HEENT Other: Unremarkable Head: Yes normal to inspection Neck Neck: Yes normal visual inspection Chest Chest palpation & inspection: normal inspection of the chest Resp Other: intermittent mild wheeze Cardio Palpation: normal PMI Heart sounds: S1 normal heart sound present, S2 normal heart sound present, no gallops, no murmurs and no rubs GI Palpation (GI): Soft to palpation Back/Spine/Pelvis Other: unremarkable Skin General skin exam: no rashes or lesions noted Neuro General: patient oriented x3 Extrem Other: Trace edema General: Yes normal to inspection Psych Mental Status: mental status grossly normal Office Procedures EKG Details: EKG with sinus rhythm at 62/Min; sinus arrhythmias; no ischemic findings; [place] [address]-[id number], Complete Assessment & Plan Assessment & Plan (1) SOB (shortness of breath): Code(s): R06.02 - Shortness of breath Category: Medical (2) HTN (hypertension): Code(s): I10 - Essential (primary) hypertension Category: Medical (3) Chronic kidney disease: Code(s): N18.9 - Chronic kidney disease, unspecified Category: Medical (4) Morbid obesity: Code(s): E66.01 - Morbid (severe) obesity due to excess calories Category: Medical Plan On clinical exam, localized intermittent beats and minimal edema in the lower extremity. We will need to evaluate for hypertension induced congestive heart failure and ischemic heart disease considering his comorbidities. We will start with an echocardiogram and exercise stress perfusion imaging study. Based on the findings, we will plan further care. Otherwise, continue CPAP for KUNAL. Pressure meds. He already sees Nephrology for CKD. Discussed with significant other who came for appointment. Discussion Notes I discussed with the patient the need for further cardiac evaluation, including an echocardiogram and stress test, to assess cardiac function and rule out significant pathology. We also reviewed the potential impact of sleep apnea on cardiovascular health and the importance of continued CPAP use. The patient was advised that if symptoms worsen or new symptoms develop, immediate medical attention should be sought. Patient was informed and verbally consented to the use of an ambient scribe for clinic note documentation during this visit. Orders: Orders CA echo transthoracic complete Today R06.02 - Shortness of breath CA stress test Today R06.02 - Shortness of breath NM cardiolite stress test Today R06.02 - Shortness of breath Patient Instructions: - Continue taking prescribed medications for hypertension and hyperlipidemia. - Use CPAP machine consistently at night for sleep apnea. - Monitor for any worsening of symptoms and seek immediate medical attention if necessary. - Follow up for scheduled echocardiogram and stress test as advised. Coding Level of Care Code New Pt Level 4 (38478) Complex EM visit Add On G2211 Diagnoses SOB (shortness of breath) R06.02 HTN (hypertension) I10 Chronic kidney disease N18.9 Morbid obesity E66.01 CPT Codes EKG - CPT: 56604-[id number], Complete ([id number])
[2025-05-30 08:37] VITALS: BP 132/80; PULSE 62; BMI 35.5
--- OUTSIDE RECORDS SUMMARY | 2025-05-30 09:06 | XMS_ITS | Patient Health Record ---
Author Organization [facility] Address [address] [place] [address] Care Team Providers Care Sourcing Specialist Name Role Phone Maria Victoria Connolly Primary Care Provider Edmond La Unavailable [phone] Allergies Allergen (clinical drug ingredient) Drug/Non Drug Allergy documented on EMR Reaction Allergy Type Onset Date Status codeine Codeine Unknown Drug Allergy Active Reason For Referral No Information Medications Medication SIG (Take, Route, Frequency, Duration) Notes Start Date End Date Status Metoprolol Succinate ER 50 MG Oral; Duration: 90 Active Rosuvastatin Calcium 10 MG Oral; Duration: 90 Active amLODIPine Besylate 10 MG Oral; Duration: 90 Active CoQ-10 Active Social History Tobacco [...] Problem Status W/U Status Risk Notes Problem Screening for malignant neoplasm of colon (749098355) Encounter for screening for malignant neoplasm of colon (Z12.11) Active confirmed Problem Preprocedural examination (228322169924032) Preprocedural examination (Z01.818) Active confirmed Problem Diverticulosis of colon (748638331) Diverticulosis of colon (K57.30) Active confirmed Plan Of Treatment Future Test Test Name Order Date COLONOSCOPY 08/14/2021 Insurance Providers Payer Name Payer Address Payer Phone Subscriber Number Group Number Insured Name Patient Relationship to Insured Coverage Start Date Coverage End Date [facility] [address] [place] [facility] [place], [place] [phone] [id number] DANIELLE WANG Self - patient is the insured Medical (General) History Medical History History ICD Code Hypertension Denies SC,DM,CVA,Lung disease,renal dise ase Hyperlipidemia ? sleep apnea--he does snore --going to speak with his PCP about a sleep study as of our 08/14/2021 OV Surgical History Surgery Date(Month/Year) left shoulder 2020 right shoulder 2010 right knee 2005
== END 2025-05-30 09:10 | disposition home or self-care (01) ==
LOC: HO.HCS 08:35
PROVIDERS: PCP Internal Medicine; Visit Provider Internal Medicine
DX: R06.02 Shortness of breath (principal); I12.9 Hypertensive chronic kidney disease with stage 1 through stage 4 chronic kidney disease, or unspecified chronic kidney disease; N18.9 Chronic kidney disease, unspecified; E66.01 Morbid (severe) obesity due to excess calories
CPT/HCPCS: 93010; 99204; G2211

== ENCOUNTER → 2025-05-30 08:34 | Outpatient (BNVA) | payer OTHER, SELFPAY | PROVIDERS: PCP Internal Medicine; Visit Provider Internal Medicine | DX: R06.02 Shortness of breath (principal); I10 Essential (primary) hypertension; E66.01 Morbid (severe) obesity due to excess calories | CPT/HCPCS: 93005 ==

== ENCOUNTER → 2025-07-04 07:50 | Outpatient (REF) | payer OTHER, SELFPAY ==
--- NOTE | ~2025-07-04 | NM_ITS ---
EXERCISE MYOCARDIAL PERFUSION STUDY INDICATION: Shortness of breath TECHNIQUE: The patient was brought in for an exercise perfusion study on 07/04/2025. Patient performed exercise as per Charles protocol and was injected 40 mCi of sestamibi once target heart rate was achieved. Images were obtained using the SPECT gamma camera interlaced with the gating device. Images were obtained in supine position. Resting perfusion study was performed on 07/11/2025. Patient was administered 40 mCi of sestamibi intravenously at rest. Images were then obtained in supine position. Total DLP 97 mGy-cm. Images were processed with the software and compared side to side in short axis, horizontal no significant perfusion abnormality long axis and vertical long axis views. FINDINGS: Raw aquisition reviewed. The stress perfusion study showed no significant perfusion abnormality. Both uncorrected as well as CT attenuation corrected images were reviewed. The gated study shows normal LV systolic function with calculated LVEF of 66%. LV cavity is normal in size. The gated study shows normal wall thickening and contraction of segments. Resting study shows no significant perfusion abnormality. Gating at rest reveals normal wall motion with ejection fraction at 60%. The findings are consistent with no clear reversible or fixed perfusion abnormality. NM/NM cardiolite stress test IMPRESSION: 1. Myocardial perfusion imaging study shows probably normal myocardial perfusion. 2. Gated LVEF is 66% during stress and 60% during rest. 3. Transient ischemic dilatation not present. EKG component of the test reported separately. Electronically signed by: Lowell Olivas MD 07/12/2025 04:17 PM [facility] [facility] [place]
--- OUTSIDE RECORDS SUMMARY | 2025-07-04 07:52 | XMS_ITS ---
Author Name [facility] Organization Unknown History of Medication Use Medication Directions Dispensed Refills Start Date End Date Stat us Lidocaine Viscous 05/10/2025 act claudia rosuvastatin calcium 04/05/2025 active metoprolol succinate 04/05/2025 active amlodipine besylate 03/20/2025 a ctive prazosin HCl active fenofibrate,micronized a ctive Allergies Allergen Reaction Severity Comment Documented Date Source Statu s CODEINE ABDOMINAL PAIN OR CR AMPING ([id number]) [facility]
--- OUTSIDE RECORDS SUMMARY | 2025-07-04 07:52 | XMS_ITS | Patient Health Record ---
Author Organization [facility] Address [address] [place] [address] Care Team Providers Care Coin Machine Service Repairer Name Role Phone Maria Victoria Connolly Primary Care Provider Edmond La [phone] Allergies Allergen (clinical drug ingredient) Drug/Non Drug Allergy documented on EMR Reaction Allergy Type Onset Date Status codeine Codeine Unknown Drug Allergy Active Reason For Referral No Information Medications Medication SIG (Take, Route, Frequency, Duration) Notes Start Date End Date Status Metoprolol Succinate ER 50 MG Tablet Extended Release 24 Hour Oral; Duration: 90 Active Rosuvastatin Calcium 10 MG Tablet Oral; Duration: 90 Active amLODIPine Besylate 10 MG Tablet Oral; Duration: 90 Active CoQ-10 Active Social History Tobacco Use: Social History Observation Description Date Details (start date - stop date) Former Smoker NA - NA Social History Drugs/Alcohol: Social Info Question Answer Notes Alcohol Screen Did you have a drink containing alcohol in the past year? Yes How often did you have a drink containing alcohol in the past year? 2 to 4 times a month (2 points) How many drinks did you have on a typical day when you were drinking in the past year? 5 or 6 drinks (2 points) Points 4 Interpretation Positive Tobacco Use: Social Info Question Answer Notes Tobacco Use/Smoking Patient is a former smoker How long has it been since you last smoked? 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; no sig alcohol Problems Problem Type SNOMED Code ICD Code Onset Dates Problem Status W/U Status Risk Notes Problem Screening for malignant neoplasm of colon (426035254) Encounter for screening for malignant neoplasm of colon (Z12.11) Active confirmed Problem Preprocedural examination (076548699061628) Preprocedural examination (Z01.818) Active confirmed Problem Diverticulosis of colon (079660176) Diverticulosis of colon (K57.30) Active confirmed Plan Of Treatment Future Test Test Name Order Date COLONOSCOPY 08/14/2021 Insurance Providers Payer Name Payer Address Payer Phone Subscriber Number Group Number Insured Name Patient Relationship to Insured Coverage Start Date Coverage End Date [facility] [address] [place] [phone] [id number] DANIELLE WANG Self - patient is the insured Medical (General) History Medical History History ICD Code Hypertension Denies GA,DM,CVA,Lung disease,renal dise ase Hyperlipidemia ? sleep apnea--he does snore --going to speak with his PCP about a sleep study as of our 08/14/2021 OV Surgical History Surgery Date(Month/Year) left shoulder 2020 right shoulder 2010 right knee 2005
--- NOTE | 2025-07-04 07:53 | CA_ITS ---
Acquisition Time: 2025-07-04 09:19:20 Total Exercise Time: 00:09:45 Test Indications: sob Medications: see h&p Protocol: RE Max HR: 151 BPM 90% of Pred: 166 BPM Max BP: 142/82 mmHG Max Work Load: 11.3 METS Exercise stress test with exercise 9 mins 45 secs of Re Protocol,achieving 90% MPHR, with reports of SOB, no chest pain, without any arrythmias, with normotensive response to exercise. With borderline ST changes inferiorly and anterolaterally in recovery, equivocal for ichemia. In recovery, breathing improved to baseline. ST segment improved. Nuclear images pending. Test reviewed with Dr. Olivas. Referred By: Lowell Olivas Electronically Signed By: Miller Sutton
--- NOTE | 2025-07-04 07:53 | CA_ITS ---
Transthoracic Echocardiogram Amended Patient (Last, First, Middle): Len Erickson P Gender: Male Date of : 1970 Age: 54 Procedure Date: 07/04/2025 Procedure Type: Transthoracic Echocardiogram Location: OP Height: 182.88 cm Weight: 118.39 kg BSA: 2.39 m2 Heart Rate: bpm BP: 132 / 80 mmHg Hearing Aide Technician: YONAS Referring MD: Lowell Olivas MD Symptoms: R06.02 - Shortness of breath Study Quality: Fair, contrast ECG Rhythm: Sinus Conclusions: - The left ventricular systolic function is normal. The visually estimated ejection fraction is between 55-60%. - No obvious valvular pathology seen on this study. Findings Procedure Information Contrast agent, definity, is being given per protocol without apparent complications. Left Ventricle Normal left ventricular cavity size. There is mildly increased left ventricular wall thickness. The left ventricular systolic function is normal. The visually estimated ejection fraction is between 55-60%. Diastolic function is normal for age. Possible basal inferoseptal hypokinesis in some views, but can also be artifactual. Right Ventricle Normal right ventricular cavity size and systolic function. Atria Both atria are normal in size. Aortic Valve There is a normal trileaflet aortic valve. There is no aortic valve stenosis. There is no aortic valve regurgitation. Mitral Valve The mitral valve appears normal. There is no mitral valve regurgitation. There is no mitral valve stenosis. Pulmonic Valve The pulmonic valve is likely normal. Tricuspid Valve There is trace tricuspid valve regurgitation. There is no evidence of pulmonary hypertension. Great Vessels The asc aorta is normal in size. Venous The inferior vena cava is normal in size and collapses greater than 50% with inspiration. Pericardium/Pleural There is no evidence of pericardial effusion. Prior Study Comparison No prior study available for comparison. Recommendations, Care & Conclusions No obvious valvular pathology seen on this study. Measurements 2D Linear Measurements IVSd: 1.23 0.6-0.9/0.6-1.0 cm LVIDd: 4.97 3.9-5.3/4.2-5.9 cm LVIDd Index: 2.08 2.4-3.2/2.2-3.1 cm/m2 LVIDs: 3.29 2.0-3.6 cm LVPWd: 1.05 0.7-1.1 cm LA Diam: 3.30 2.7-3.8/3.0-4.0 cm LAIDs Index: 1.38 1.5-2.3 cm/m2 LV Mass: 268.65 67-162/88-224 g LV Mass Index: 112.40 43-95/49-115 g/m2 LVOT Diam: 2.30 3.0+(-)1.3 cm 2D Volumes LA Vol: 25.30 2D Systolic Function EF 4C: 59.90 >55% EF 2C: 69.00 >55% EF BiP: 64.80 >55% Mitral Valve MV Pk E: 1.17 MV PK A: 1.07 MV Decel Time: 216.00 E/A: 1.10 E'Lateral: 9.46 E'Medial: 7.72 E/E' Med: 15.20 E/E' Lat: 12.40 PHT: 63.00 MVA PHT: 3.49 Decel [place]: 5.43 Aortic Valve AoV Pk Gil: 1.61 AoV Mn Gil: 1.16 AoV VTI: 0.41 AoV Pk Grad: 10.00 Aov Mn Grad: 6.00 ANTONELLA Cont.VTI: 2.79 LVOT LVOT Pk Gil: 1.24 LVOT Mn Gil: 0.89 LVOT VTI: 0.28 LVOT Pk Grad: 6.00 LVOT Mn Grad: 4.00 LVOT Diam: 2.30 LVOT Area: 4.15 Diastolic Function MV Pk E: 1.17 MV Pk A: 1.07 E/A: 1.10 E'Medial: 7.72 E/E' Med: 15.20 E' Laterial: 9.46 E/E' Lat: 12.40 Right Ventricle TAPSE (mm): 29.60 TVS' Gil: 12.90 Tricuspid Valve TR Pk Gil: 1.70 TR Pk Grad: 12.00 RA Press: 3.00 RVSP: 15.00 Great Vessels Aorta Sinus of Valsalva: 3.83 2.0-3.[address] [place]: 2.73 1.7-3.4 cm Ao Asc: 3.60 2.1-3.4 cm Pulmonary Veins Pulm Vein S/D 0.80 Updated in Other Vendor System with Status of Final Lowell Olivas MD electronically signed on 07/12/2025 4:20:06 PM with status of Final
== END ==
LOC: HO.CARD 07:50
PROVIDERS: PCP Internal Medicine; Visit Provider Internal Medicine
DX: R06.02 Shortness of breath (principal)
CPT/HCPCS: 78452; 93017; 93306; A9500; Q9957

== ENCOUNTER → 2025-07-04 07:53 | Outpatient (BNV) | payer OTHER, SELFPAY | PROVIDERS: PCP Internal Medicine | DX: R06.02 Shortness of breath (principal) | CPT/HCPCS: 78452; 93016; 93018; 93325; 93350; 93352 ==